=== PATIENT | male | born 1975 ===

== ENCOUNTER 2018-12-31 00:16 | Day surgery (SDC) | payer OTHER ==
[2018-12-31] MEDS ORDERED: PROBIOTIC1 EAC1 PO (09:45)
[2018-12-31] MEDS ORDERED: CIPR500 PO (09:46)
[2018-12-31] MEDS ORDERED: METR500 PO (09:47)
[2018-12-31] MEDS ORDERED: Remicade100 MG IV (09:49)
== END 2018-12-31 11:16 | disposition home or self-care (01) ==
LOC: ATC 00:16
DX: K50.90 Crohn's disease, unspecified, without complications (principal); Z90.49 Acquired absence of other specified parts of digestive tract
CPT/HCPCS: 96413; 96415; J1745; J7050; Q0163

== ENCOUNTER 2019-01-14 00:47 | Day surgery (SDC) | payer OTHER ==
[~2019-01-14 00:47] MED LIST: CIPR500 PO; METR500 PO; PROBIOTIC1 EAC1 PO; Remicade100 MG IV
== END 2019-01-14 11:35 | disposition home or self-care (01) ==
LOC: ATC 00:47
DX: K50.90 Crohn's disease, unspecified, without complications (principal)
CPT/HCPCS: J1745; J7050; Q0163

== ENCOUNTER 2019-05-27 01:14 | Day surgery (SDC) | payer OTHER | END 2019-05-27 12:07 | disposition home or self-care (01) | LOC: ATC 01:14 | DX: K50.90 Crohn's disease, unspecified, without complications (principal); J45.909 Unspecified asthma, uncomplicated; Z79.899 Other long term (current) drug therapy | CPT/HCPCS: 96413; 96415; A9270; J1745; J7050; Q0163 ==

== ENCOUNTER 2019-07-22 00:26 | Day surgery (SDC) | payer OTHER | END 2019-07-22 11:12 | disposition home or self-care (01) | LOC: ATC 00:26 | DX: K50.90 Crohn's disease, unspecified, without complications (principal) | CPT/HCPCS: 96413; 96415; A9270; J1745; J7050; Q0163 ==

== ENCOUNTER 2019-09-19 00:10 | Day surgery (SDC) | payer OTHER | END 2019-09-19 11:31 | disposition home or self-care (01) | LOC: ATC 00:10 | DX: K50.90 Crohn's disease, unspecified, without complications (principal); K91.850 Pouchitis; Z79.899 Other long term (current) drug therapy | CPT/HCPCS: 96413; 96415; A9270; J1745; J7050; Q0163 ==

== ENCOUNTER → 2019-11-12 | Outpatient (CLI) | payer BC | LOC: LAB SHORT 12:38 → LAB 12:38 | DX: R30.0 Dysuria (principal) | CPT/HCPCS: 87077; 87086; 87186 ==

== ENCOUNTER 2019-11-18 02:09 | Day surgery (SDC) | payer BC, OTHER | END 2019-11-18 10:24 | disposition home or self-care (01) | LOC: ATC 02:09 | DX: K50.90 Crohn's disease, unspecified, without complications (principal); J45.909 Unspecified asthma, uncomplicated; Z79.899 Other long term (current) drug therapy | CPT/HCPCS: 96413; 96415; A9270; J1745; J7050; Q0163 ==

== ENCOUNTER → 2019-11-24 | Outpatient (CLI) | payer BC | END | disposition home or self-care (01) | LOC: LAB SHORT 15:29 → LAB 15:29 | DX: N39.0 Urinary tract infection, site not specified (principal) | CPT/HCPCS: 87077; 87086; 87186 ==

== ENCOUNTER → 2020-01-06 | Outpatient (CLI) | payer BC | END | disposition home or self-care (01) | LOC: LAB SHORT 12:36 → LAB 12:36 | DX: R35.0 Frequency of micturition (principal) | CPT/HCPCS: 87077; 87086; 87186 ==

== ENCOUNTER → 2020-02-01 | Outpatient (CLI) | payer BC | LOC: LAB SHORT 16:36 → LAB 16:36 | DX: N39.0 Urinary tract infection, site not specified (principal) | CPT/HCPCS: 87077; 87086; 87186 ==

== ENCOUNTER 2020-06-04 00:16 | Day surgery (SDC) | payer BC | END 2020-06-04 10:33 | disposition home or self-care (01) | LOC: ATC 00:16 | DX: K50.90 Crohn's disease, unspecified, without complications (principal); J45.909 Unspecified asthma, uncomplicated | CPT/HCPCS: 96413; 96415; A9270; J1745; J7050; Q0163 ==

== ENCOUNTER 2020-08-01 00:16 | Day surgery (SDC) | payer BC ==
--- NOTE | 2020-08-01 09:12 | NUR ---
IV ATTEMPT X2. 2ND RN TO ACCESS SITE.
--- NOTE | 2020-08-01 09:50 | NUR ---
SHORTY WEBB RN ATTEMPTED 2 OR 3 IV STARTS, PT FEELING NAUSEOUS AND DIAPHORETIC
== END 2020-08-01 11:23 | disposition home or self-care (01) ==
LOC: ATC 00:16
DX: K50.90 Crohn's disease, unspecified, without complications (principal); J45.909 Unspecified asthma, uncomplicated; Z79.899 Other long term (current) drug therapy
CPT/HCPCS: 96365; 96366; A9270; J1745; J7050; Q0163

== ENCOUNTER 2020-11-23 08:22 | Inpatient (IN) | payer BC ==
[~2020-11-23] VITALS: Ht 185.4 cm; Wt 104.5 kg
[2020-11-23 09:06] LABS: BASOPHILS ABSOLUTE AUTO 0.03 K/mm3 (0.00-0.23); BASOPHILS PERCENT AUTO 0 % (0-2); EOSINOPHILS PERCENT AUTO 0 % (0-6); Hematocrit 52.7 % (37.0-53.0); Hemoglobin 17.3 g/dL (13.5-17.5); IMMATURE GRAN ABSOLUTE AUTO 0.05 K/mm3 (0.00-0.10); IMMATURE GRAN PERCENT AUTO 0 % (0-1); LYMPHOCYTES ABSOLUTE AUTO 1.01 K/mm3 (0.84-5.20); LYMPHOCYTES PERCENT AUTO 7 % (21-46); MONOCYTES ABSOLUTE AUTO 0.98 K/mm3 (0.16-1.47); MONOCYTES PERCENT AUTO 7 % (4-13); Mean Corpuscular HGB 28.9 pg (26.0-34.0); Mean Corpuscular HGB Conc 32.8 g/dL (31.5-36.5); Mean Corpuscular Volume 88 fL (80-100); Mean Platelet Volume 9.2 fL (9.1-12.4); NEUTROPHILS ABSOLUTE AUTO 11.52 K/mm3 (1.96-9.15); NEUTROPHILS PERCENT AUTO 85 % (41-73); Platelet Count 354 K/mm3 (150-400); RDW Coefficient Variation 13.8 % (11.7-14.2); RDW Standard Deviation 43.8 fL (35.1-46.3); Red Blood Cell Count 5.99 M/mm3 (4.30-5.90); White Blood Cell Count 13.59 K/mm3 (4.00-11.30)
[2020-11-23 09:19] LABS: Alanine Aminotransfer (ALT/SGP 27 U/L (12-78); Albumin, Blood 4.1 g/dL (3.4-5.0); Albumin/Globulin Ratio 0.9 (0.8-1.8); Alk Phos 101 U/L (50-136); Anion Gap 7 mmol/L (6-16); Aspartate Aminotrans (AST/SGOT 19 U/L (12-37); Bilirubin, Total 2.6 mg/dL (0.1-1.0); Blood Urea Nitrogen 14 mg/dL (8-24); Bun/Creatinine Ratio 12.4 (12.0-20.0); CO2, Blood 27 mmol/L (21-32); Calcium, Blood 9.7 mg/dL (8.5-10.1); Chloride, Blood 105 mmol/L (98-108); Creatinine, Blood 1.13 mg/dL (0.60-1.20); Globulin, Blood 4.7 g/dL (2.2-4.0); Glomerular Filtration Rate >60 (60-); Glucose, Blood 128 mg/dL (70-99); Potassium, Blood 4.1 mmol/L (3.5-5.5); Sodium, Blood 139 mmol/L (136-145); Total Protein, Blood 8.8 g/dL (6.4-8.2)
[2020-11-23 11:05] LABS: Source, Urine Voided
[2020-11-23 11:15] LABS: Appearance, Urine Hazy (Clear); Blood, Urine 3+ (Neg); Color, Urine Amber (P-Yellow); Glucose Qualitative, Urine Neg (Neg); Ketones, Urine 3+ (Neg); Leukocyte Esterase, Urine 3+ (Neg); Nitrite, Urine Neg (Neg); Protein, Urine 2+ (Neg); Urobilinogen, Urine 1+ (Normal)
[2020-11-23 11:25] LABS: Bilirubin, Urine 1+ (Neg)
[2020-11-23 11:27] LABS: White Blood Cells, Urine 50-100 /hpf (0-5)
[2020-11-23 11:28] LABS: Bacteria Few /hpf; Renal Epithelial Few /hpf (0-Rare); Squamous Epithelial Cells Not Seen /hpf (Few); Transitional Epithelial Cells Few /hpf (0-Rare)
--- NOTE | 2020-11-23 15:42 | NUR ---
PT TRANSFERED TO [facility]IA [facility] FROM [facility]. History, Chart, Medications and Allergies reviewed before start of procedure. Lungs clear T/O to Auscultation. Patient confirms NPO status and agrees with scheduled surgery. Pre-Op teaching done. Pt verbalizes understanding. Patient States Post-Procedure ride home has been arranged. DUE TO THE PT'S DISCOMFORT AND EMERGENT NECESSCITY OF THIS CASE, DR. LLOYD CHOOSE TO FOREGO THE COVID TEST. BOTH RN'S IN THE PROCEDURE AGREEED AND WITH WEAR APPROPITATE PPE.
--- NOTE | 2020-11-23 15:51 | NUR ---
11/23/20 1551 GINNY NIX History, Chart, Medications and Allergies reviewed before start of procedure. 3-LEAD EKG REVIEWED WITH PHYSICIAN PRIOR TO START OF PROCEDURE. MONITOR INTACT WITH CONTINUOUS PULSE OXIMETRY AND INTERMITTENT BP. O2 VIA N/C INTACT THROUGHOUT SEDATION/PROCEDURE. PATIENT DETERMINED TO BE ASA APPROPRIATE FOR PROPOFOL SEDATION PRIOR TO START OF PROCEDURE BY DR. LLOYD.
--- NOTE | 2020-11-23 19:20 | NUR ---
SHIFT SUMMARY PT AXO PLEASANT AND COOPERATIVE WITH CARE. ARRIVED TO ROOM AT 1145 VIA BED. PT TRANSFERS WITH STEADY GAIT. PT COMPLAINED OF PAIN 4-8/[address] OTOOLE CONSULTED AND PROCEDURE COMPLETED, SEE NOTES. PT DENIES SOB. POST PROCEDURE PT DENIES PAIN, CRAMPS AND N/V. IV PATENT AND INFUSING PER EMAR. BED IN LOW POSITION, CALL LIGHT WITHIN REACH. DR OTOOLE TOLD PATIENT WITH NURSE PRESENT THAT HE COULD START CLEAR LIQUIDS AT 2000 IF HE WAS NOT HAVING CRAMPS AND WAS FEELING BETTER. PT AGREES. REPORT GIVEN TO ARCHITECTURAL PROJECT CAPTAIN NURSE WHO ASSUMES CARE AT THIS TIME.
[2020-11-24 06:48] LABS: BASOPHILS ABSOLUTE AUTO 0.01 K/mm3 (0.00-0.23); BASOPHILS PERCENT AUTO 0 % (0-2); EOSINOPHILS PERCENT AUTO 0 % (0-6); Hematocrit 42.5 % (37.0-53.0); Hemoglobin 13.5 g/dL (13.5-17.5); IMMATURE GRAN ABSOLUTE AUTO 0.01 K/mm3 (0.00-0.10); IMMATURE GRAN PERCENT AUTO 0 % (0-1); LYMPHOCYTES ABSOLUTE AUTO 0.93 K/mm3 (0.84-5.20); LYMPHOCYTES PERCENT AUTO 13 % (21-46); MONOCYTES ABSOLUTE AUTO 0.72 K/mm3 (0.16-1.47); MONOCYTES PERCENT AUTO 10 % (4-13); Mean Corpuscular HGB 27.8 pg (26.0-34.0); Mean Corpuscular HGB Conc 31.8 g/dL (31.5-36.5); Mean Corpuscular Volume 87 fL (80-100); NEUTROPHILS ABSOLUTE AUTO 5.32 K/mm3 (1.96-9.15); NEUTROPHILS PERCENT AUTO 76 % (41-73); Platelet Count 267 K/mm3 (150-400); RDW Coefficient Variation 13.5 % (11.7-14.2); RDW Standard Deviation 43.6 fL (35.1-46.3); Red Blood Cell Count 4.86 M/mm3 (4.30-5.90); White Blood Cell Count 6.99 K/mm3 (4.00-11.30)
--- NOTE | 2020-11-24 06:51 | NUR ---
SHIFT SUMMARY PT IS A 45 Y/O MALE, ADMITTED FOR A SBO AND POST GI PROCEDURE YESTERDAY, 11/23. HE IS A&O X 4, INDEPENDENT IN THE ROOM. PT STATES HIS ABD PAIN AND NAUSEA ARE GONE SINCE HIS PROCEDURE, AND REPORTS BOTH PASSING FLATUS AND BMS SINCE THEN. VITAL SIGNS STABLE. PER REPORT FROM DAY SHIFT, PT OKAY TO BE ON CLEAR LIQUID DIET AFTER 1999 IF SYMPTOMS STILL RESOLVED, THOUGH NO ORDER WAS PUT IN. PT RECEIVING NS @ 125 ML/HR. NO ACUTE CHANGES IN PT CONDITION NOTED. WILL CONTINUE TO MONITOR AND TREAT PER EMAR UNTIL HAND OFF TO DAY SHIFT RN.
[2020-11-24 07:08] LABS: Alanine Aminotransfer (ALT/SGP 21 U/L (12-78); Albumin, Blood 3.1 g/dL (3.4-5.0); Albumin/Globulin Ratio 0.8 (0.8-1.8); Alk Phos 67 U/L (50-136); Anion Gap 5 mmol/L (6-16); Aspartate Aminotrans (AST/SGOT 16 U/L (12-37); Bilirubin, Total 1.1 mg/dL (0.1-1.0); Blood Urea Nitrogen 12 mg/dL (8-24); CO2, Blood 26 mmol/L (21-32); Calcium, Blood 8.1 mg/dL (8.5-10.1); Chloride, Blood 108 mmol/L (98-108); Creatinine, Blood 0.93 mg/dL (0.60-1.20); Globulin, Blood 3.9 g/dL (2.2-4.0); Glomerular Filtration Rate >60 (60-); Glucose, Blood 109 mg/dL (70-99); Magnesium, Blood 2.3 mg/dL (1.6-2.4); Potassium, Blood 4.2 mmol/L (3.5-5.5); Sodium, Blood 139 mmol/L (136-145)
[2020-11-24] MEDS ORDERED: METR500 PO (14:02)
[2020-11-24] MEDS ORDERED: CIPR500 PO (14:02)
--- NOTE | 2020-11-24 14:46 | NUR ---
DISCHARGE DISCHARGE MEDICATIONS AND INSTRUCTIONS EXPLAINED TO PATIENT. PATIENT STATED UNDERSTANDING. PATIENT TO SCHEDULE PCP FOLLOW UP ON THURSDAY. IV REMOVED WITHOUT ISSUE. BELONGINGS WITH PATIENT. PATIENT AND AMBULATED TO PRIVATE VEHICLE.
== END 2020-11-24 14:20 | disposition home or self-care (01) | DRG 394 ==
LOC: ER 08:22 → MEDS 10:15 → ER 11:50 → MEDS 11-24 14:20
PROVIDERS: Emergency Medicine; Internal Medicine Gastroenterology; ADMIT Internal Medicine
PROC: 0D7Q8ZZ Dilation of Anus, Via Natural or Artificial Opening Endoscopic (ICD-10-PCS; principal; 2020-11-23 15:00)
PROC: 0DBB8ZX Excision of Ileum, Via Natural or Artificial Opening Endoscopic, Diagnostic (ICD-10-PCS; 2020-11-23 15:00)
DX: K91.850 Pouchitis (principal); K94.19 Other complications of enterostomy; K50.913 Crohn's disease, unspecified, with fistula; N39.0 Urinary tract infection, site not specified; K62.4 Stenosis of anus and rectum; Z79.899 Other long term (current) drug therapy
CPT/HCPCS: 36415; 74177; 80053; 81001; 83690; 83735; 85025; 87086; 88305; 96361; 96374-59; 96375; 99285-25; J0696; J0744; J1170; J1650; J2250; J2405; J2704; J2920; J7030; J7120; Q9967

== ENCOUNTER 2021-01-21 00:15 | Day surgery (SDC) | payer BC ==
[2021-01-21] MEDS ORDERED: BUDE.25 PO (08:46)
== END 2021-01-21 11:00 | disposition home or self-care (01) ==
LOC: ATC 00:15
DX: K50.90 Crohn's disease, unspecified, without complications (principal); K56.609 Unspecified intestinal obstruction, unspecified as to partial versus complete obstruction; J45.909 Unspecified asthma, uncomplicated
CPT/HCPCS: 96413; 96415; A9270; J1745; J7050

== ENCOUNTER 2021-03-29 01:58 | Day surgery (SDC) | payer BC ==
[~2021-03-29] VITALS: Wt 105.3 kg
[~2021-03-29 01:58] MED LIST changes: +BUDE.25 PO
== END 2021-03-29 11:35 | disposition home or self-care (01) ==
LOC: ATC 01:58
DX: K50.90 Crohn's disease, unspecified, without complications (principal); J45.909 Unspecified asthma, uncomplicated
CPT/HCPCS: 96413; 96415; J1745; J7050

== ENCOUNTER 2021-07-05 01:03 | Day surgery (SDC) | payer BC | END 2021-07-05 16:20 | disposition home or self-care (01) | LOC: ATC 01:03 | DX: K50.90 Crohn's disease, unspecified, without complications (principal); J45.909 Unspecified asthma, uncomplicated | CPT/HCPCS: 96413; 96415; J1745; J7050 ==

== ENCOUNTER → 2023-06-21 | Outpatient (CLI) | payer SELFPAY | END | disposition home or self-care (01) | LOC: LAB 17:23 → LAB SHORT 17:23 | DX: R30.0 Dysuria (principal) | CPT/HCPCS: 87077; 87086; 87186 ==

== ENCOUNTER → 2025-09-18 | Outpatient (CLI) | payer BC | END | disposition home or self-care (01) | LOC: LAB SHORT 16:43 → LAB 16:43 | DX: N39.0 Urinary tract infection, site not specified (principal) | CPT/HCPCS: 87077; 87086; 87186 ==